=== PATIENT | female | born 1970 | race Caucasian/White ===

== ENCOUNTER → 2024-02-19 15:40 | Outpatient (REF) | payer BC, SELFPAY ==
[2024-02-19 17:32] LABS: Free T4 1.55 ng/dl (0.78-2.19)
[2024-02-19 17:47] LABS: TSH 1.72 uIU/ml (0.47-4.68)
[2024-02-21 16:41] LABS: Thyroglobulin 0.2 ng/mL (1.3-31.8); Thyroglobulin Antibodies <0.9 IU/mL (0.0-4.0)
== END ==
LOC: REG 15:40
PROVIDERS: ATTENDING PHYSICIAN Internal Medicine Endocrinology, Diabetes & Metabolism; FAMILY PHYSICIAN Family Medicine
DX: E03.9 Hypothyroidism, unspecified (principal); C73 Malignant neoplasm of thyroid gland; R79.89 Other specified abnormal findings of blood chemistry
CPT/HCPCS: 36415; 84432; 84439; 84443; 86800

== ENCOUNTER → 2025-03-27 09:00 | Outpatient (REF) | payer BC, SELFPAY | LOC: CLAB 09:00 | PROVIDERS: ATTENDING PHYSICIAN Student in an Organized Health Care Education/Training Program | DX: M25.572 Pain in left ankle and joints of left foot (principal) | CPT/HCPCS: 88304 ==

== ENCOUNTER → 2025-07-15 08:51 | Outpatient (REF) | payer BC, SELFPAY | LOC: RAD 08:51 | PROVIDERS: ATTENDING PHYSICIAN Internal Medicine Endocrinology, Diabetes & Metabolism; FAMILY PHYSICIAN Family Medicine | DX: C73 Malignant neoplasm of thyroid gland (principal) | CPT/HCPCS: 76536 ==